=== PATIENT | female | born 1980 | race African-American/Black ===

== ENCOUNTER 2019-08-31 19:03 | Emergency (ER) | payer MEDICAID, OTHER ==
[~2019-08-31] VITALS: Ht 162.6 cm; Wt 122.5 kg
[~2019-08-31 19:03] MED LIST: ALBUTEROL2.5 MG/3 M HHN; PROVENTIL2.5 MG/3 M HHN
[2019-08-31] MEDS ORDERED: CEPHALEXIN500 MG ORAL (19:58)
[2019-08-31 20:05] VITALS: BP 151/90
--- NOTE | 2019-08-31 20:05 | NUR ---
ED Nurse Note: Patient walked in to ER c/o sore throat, nose congestion, headache. AAO x4, VSS at this time.
[2019-08-31] MEDS ORDERED: Lidocaine 2% Visc 15ml soln ORAL ONE (20:15)
[2019-08-31] MEDS ORDERED: Dexamethasone 4mg/ml vial IVP ONE (20:30)
[2019-08-31] MEDS ORDERED: Omnipaque-300 100ml vial INJ ONE (20:30)
[2019-08-31] MEDS ORDERED: Ketorolac 30mg Inj IV ONE (20:30)
[2019-08-31 21:29] LABS: BASOPHILS % (AUTO) 1.1 % (0.0-2.0); EOSINOPHILS % (AUTO) 0.3 % (0.0-3.0); HEMOGLOBIN 13.3 G/DL (12.0-16.0); MEAN CORPUSCULAR VOLUME 88 FL (80-99); MONOCYTES % (AUTO) 12.6 % (1.0-10.0); NEUTROPHILS % (AUTO) 54.9 % (45.0-75.0); PLATELET COUNT 289 K/UL (150-450); RED BLOOD COUNT 4.86 M/UL (4.20-5.40); RED CELL DISTRIBUTION WIDTH 13.4 % (11.6-14.8); WHITE BLOOD COUNT 14.7 K/UL (4.8-10.8)
[2019-08-31 21:55] LABS: ALANINE AMINOTRANSFERASE 39 U/L (12-78); ALBUMIN 3.5 G/DL (3.4-5.0); ALBUMIN/GLOBULIN RATIO 0.6 (1.0-2.7); ALKALINE PHOSPHATASE 90 U/L (46-116); ANION GAP 12 mmol/L (5-15); ASPARTATE AMINO TRANSFERASE 24 U/L (15-37); BILIRUBIN,TOTAL 0.8 MG/DL (0.2-1.0); BLOOD UREA NITROGEN 10 mg/dL (7-18); CARBON DIOXIDE 26 MMOL/L (21-32); CHLORIDE 100 MMOL/L (98-107); POTASSIUM 3.5 MMOL/L (3.5-5.1); SODIUM 138 MMOL/L (136-145)
[2019-08-31] MEDS ORDERED: cefTRIAXone 1 GM in NS 55 ML IVPB ONE (22:15)
[2019-08-31 22:16] LABS: CALCIUM 8.8 MG/DL (8.5-10.1)
[2019-08-31 22:47] VITALS: BP 145/90
--- NOTE | 2019-08-31 23:10 | Emergency Room Report ---
History of Present Illness General Chief Complaint: Sore Throat Source: Patient (Jessica Masterson) Present Illness HPI 39 YO female presents to the ED c/o fevers and 10/10 in severity throat pain with swelling, and difficulty swallowing x 2 days. PT. reports she was seen at urgent care and placed on albuterol and tamiflu. PT. reports her symptoms have gotten progressively worse to the point that she cannot tolerate her own saliva. She reports hx of asthma. She denies cough. She reports she did not get the flu vaccination. She reports pain is primarily on the right side of her throat. She has been taking Tylenol for fevers and pain with no relief. Pt. reports her voice is muffled now. (Jessica Masterson) Allergies: Uncoded Allergies: PCN (Allergy, 09/17/12) Patient History Past Medical History: see triage record, asthma Past Surgical History: none Pertinent Family History: none Last Menstrual Period: 08-23-2019 Now: No Reviewed Nursing Documentation: PMH: Agreed; PSxH: Agreed (Jessica Masterson) Nursing Documentation-PMH Hx Asthma: Yes (Jessica Masterson) Review of Systems All Other Systems: negative except mentioned in HPI (Jessica Masterson) Physical Exam Vital Signs Date Time Temp Pulse Resp B/P (MAP) Pulse Ox O2 Delivery O2 Flow Rate FiO2 08/31/19 19:50 100.6 112 20 151/90 (110) 96 Room Air Sp02 EP Interpretation: reviewed, normal General Appearance: alert, GCS 15, non-toxic, mild distress Head: normocephalic, atraumatic Eyes: bilateral eye normal inspection, bilateral eye PERRL ENT: hearing grossly normal, TMs + canals normal, uvula midline, moist mucus membranes, tonsillar swelling, pharyngeal erythema, tonsillar exudate, other - muffled voice Neck: full range of motion Respiratory: lungs clear, normal breath sounds, no respiratory distress, no wheezing, speaking full sentences Cardiovascular #1: regular rate, rhythm Musculoskeletal: normal range of motion, gait/station normal, non-tender Neurologic: alert, motor strength/tone normal, oriented x3, sensory intact, responsive, speech normal Psychiatric: judgement/insight normal Skin: no rash, normal color, normal inspection Lymphatic: other - anterior cervical LAd bilaterally (Jessica Masterson) Medical Decision Making PA Attestation Dr. Carpio is my supervising Physician whom patient management has been discussed with. (Jessica Masterson) Diagnostic Impression: Primary Impression: Pharyngitis, acute Qualified Codes: J02.0 - Streptococcal pharyngitis Additional Impression: Acute tonsillitis Qualified Codes: J03.90 - Acute tonsillitis, unspecified ER Course 39 YO female presents to the ED c/o fevers and 10/10 in severity throat pain with swelling, and difficulty swallowing x 2 days. PT. reports she was seen at urgent care and placed on albuterol and tamiflu. PT. reports her symptoms have gotten progressively worse to the point that she cannot tolerate her own saliva. She reports hx of asthma. She denies cough. She reports she did not get the flu vaccination. She reports pain is primarily on the right side of her throat. She has been taking Tylenol for fevers and pain with no relief. Pt. reports her voice is muffled now. Ddx considered but are not limited to: pharyngitis, strep, [employer], ludwigs angina, URI Vital signs: are WNL, pt. is afebrile H&PE are most consistent with: pharyngitis presumed strep. --suspicious for [employer]IST or retropharyngeal abscess given progression of symptoms and change in voice. ORDERS: -CBC: elevated WBC's -CMP: WNL -CT NEck ST: Pending ED INTERVENTIONS: 2% Viscous Lidocaine 5 mL's given orally 2 mg Toradol IV 8 mg Decadron IV 1 g Rocephin IV 1 L normal saline bolus DISCHARGE: At this time pt. is stable for d/c to home. Will provide printed patient care instructions, and any necessary prescriptions. Care plan and follow up instructions have been discussed with the patient prior to discharge. Labs Test 08/31/19 20:53 White Blood Count 14.7 K/UL (4.8-10.8) Red Blood Count 4.86 M/UL (4.20-5.40) Hemoglobin 13.3 G/DL (12.0-16.0) Hematocrit 43.0 % (37.0-47.0) Mean Corpuscular Volume 88 FL (80-99) Mean Corpuscular Hemoglobin 27.2 PG (27.0-31.0) Mean Corpuscular Hemoglobin Concent 30.8 G/DL (32.0-36.0) Red Cell Distribution Width 13.4 % (11.6-14.8) Platelet Count 289 K/UL (150-450) Mean Platelet Volume 8.9 FL (6.5-10.1) Neutrophils (%) (Auto) 54.9 % (45.0-75.0) Lymphocytes (%) (Auto) 31.0 % (20.0-45.0) Monocytes (%) (Auto) 12.6 % (1.0-10.0) Eosinophils (%) (Auto) 0.3 % (0.0-3.0) Basophils (%) (Auto) 1.1 % (0.0-2.0) Urine HCG, Qualitative Negative (NEGATIVE) Sodium Level 138 MMOL/L (136-145) Potassium Level 3.5 MMOL/L (3.5-5.1) Chloride Level 100 MMOL/L (98-107) Carbon Dioxide Level 26 MMOL/L (21-32) Anion Gap 12 mmol/L (5-15) Blood Urea Nitrogen 10 mg/dL (7-18) Creatinine 1.0 MG/DL (0.55-1.30) Estimat Glomerular Filtration Rate > 60 mL/min (>60) Glucose Level 116 MG/DL (74-106) Calcium Level 8.8 MG/DL (8.5-10.1) Total Bilirubin 0.8 MG/DL (0.2-1.0) Aspartate Amino Transf (AST/SGOT) 24 U/L (15-37) Alanine Aminotransferase (ALT/SGPT) 39 U/L (12-78) Alkaline Phosphatase 90 U/L (46-116) Total Protein 9.5 G/DL (6.4-8.2) Albumin 3.5 G/DL (3.4-5.0) Globulin 6.0 g/dL Albumin/Globulin Ratio 0.6 (1.0-2.7) (Jessica Masterson) ER Course Patient signed out to me. She was pending a CT scan. Unfortunately, there was an issue with the CT scanner and somehow her study was lost. Eventually that tech found the study were able to send it to teleradiology. CT scan show prominent sized tonsils bilaterally. There is also prominent lymph node. No peritonsillar abscess or mass. Patient is actually feeling better. Said her swelling is down. Will discharge home with antibiotics. She has steroid for her asthma already. (Aaron Aiken MD) CT/MRI/US Diagnostic Results CT/MRI/US Diagnostic Results : Imaging Test Ordered: CT soft tissue neck Impression Read by radiologist. Prominent sized tonsils. No mass or peritonsillar abscess. No retropharyngeal abscess. (Aaron Aiken MD) Last Vital Signs Date Time Temp Pulse Resp B/P (MAP) Pulse Ox O2 Delivery O2 Flow Rate FiO2 08/31/19 21:33 100.6 08/31/19 20:05 20 151/90 96 Room Air 08/31/19 19:50 112 (Jessica Masterson) Disposition: HOME, SELF-CARE Condition: Stable Scripts Hydrocodone Bit/Acetaminophen 5-325* (NORCO 5-325*) 1 Each Tablet 1 TAB ORAL Q6H PRN for For Pain, #10 TAB 0 Refills Prov: Aaron Aiken MD 09/01/19 Ibuprofen* (MOTRIN*) 600 Mg Tablet 600 MG ORAL THREE TIMES A DAY, #30 TAB 0 Refills Prov: Aaron Aiken MD 09/01/19 Azithromycin* (ZITHROMAX*) 250 Mg Tablet 250 MG ORAL DAILY, #6 TAB 0 Refills Take two tables once daily for 1 day, then one tablet once daily for 4 days. Prov: Aaron Aiken MD 09/01/19 Referrals: [facility] (PCP) Departure Forms: Return to Work Return to Work Date: Sep 04, 2019 Work Restrictions: None Other Restrictions: May return Sooner if Symptoms have resolved. Return to Full Activity: Sep 04, 2019 Patient Instructions: Strep Throat Additional Instructions: Take medications as directed. Follow up with a Primary Care Provider in 3-5 days, even if your symptoms have resolved. --Please review list of primary care clinics, if you do not already have a primary care provider Return sooner to ED if new symptoms occur, or current symptoms become worse. - Please note that this Emergency Department Report was dictated using [employer] worker technology software, occasionally this can lead to erroneous entry secondary to interpretation by the dictation equipment. Jessica Masterson Aug 31, 2019 23:10 Aaron Aiken MD Sep 01, 2019 00:28
--- NOTE | 2019-09-01 00:10 | Diagnostic Imaging Report ---
Indication: Neck pain. Technique: Continuous helical imaging of the neck was obtained transaxially from the skull base to the upper thoracic spine during intravenous administration of nonionic contrast. 2-D coronal and sagittal reformatted images were obtained. Total Dose length Product (DLP): 1038.[address] Dose Index Volume (CTDIvol): On 15.3 mGy Comparison: None Findings: There are bilateral jugulodigastric nodes mainly in the level 2 region of the neck. The nodes measure in the upwards of 2 to 2.5 cm and may be inflammatory or neoplastic. The palatine tonsils appear prominent bilaterally. The epiglottis is normal. Aryepiglottic folds, larynx and subglottic airway appear normal. The thyroid, parotid and submandibular glands are unremarkable. Cervical spine is unremarkable. IMPRESSION: Prominence of the palatine tonsils presumably due to tonsillitis. Correlate clinically. No abscess. Lymphadenopathy within the neck. Inflammatory versus neoplastic. [facility] has communicated the preliminary results to the Emergency Department. Their findings are largely concordant with this report. The CT scanner at [facility] is accredited by the [employer] and the scans are performed using dose optimization techniques as appropriate to a performed exam including Automatic Exposure control.
[2019-09-01] MEDS ORDERED: IBUPROFEN600 MG ORAL (00:28)
[2019-09-01] MEDS ORDERED: ZITHROMAX250 MG ORAL (00:28)
[2019-09-01] MEDS ORDERED: NORCO 5-325 TA1 EACH ORAL (00:28)
[2019-09-01 00:38] VITALS: BP 145/90
--- NOTE | 2019-09-01 00:39 | NUR ---
ER DISCHARGE NOTE: Patient is cleared to be discharged per ERMD, pt is aox4, on room air, with stable vital signs. pt was given dc and prescription instructions, pt was able to verbalize understanding, pt id band and iv site removed without complications. pt is able to ambulate with steady gait. pt took all belongings.
== END 2019-09-01 00:39 | disposition home or self-care (01) ==
LOC: EMR 19:54
DX: J02.0 Streptococcal pharyngitis (principal); J03.90 Acute tonsillitis, unspecified; J45.909 Unspecified asthma, uncomplicated
CPT/HCPCS: 36415; 70491; 80053; 81025; 85025; 96361; 96365; 96375; 99284; J0696; J1100; J1885; J7030; Q9967